=== PATIENT | male | born 1995 | race American Indian/Alaskan Native ===

== ENCOUNTER 2017-11-22 06:52 | Emergency (ER) | payer SELFPAY ==
[2017-11-22 07:57] VITALS: BP 110/76
--- NOTE | 2017-11-22 08:18 | Emergency Department Report ---
Minor Respiratory - HPI Chief Complaint: Sore Throat Stated Complaint: SORE THROAT; H/A Time Seen by Provider: 11/22/17 08:03 Duration: 1 Day Pain Location: Throat, Nose (congestion) Severity: moderate Minor Respiratory: Yes Sore Throat, Yes Able to Tolerate Fluids, Yes Cough, Yes Sick Contacts (girlfriend), Yes Fever, No Rhinorrhea, No Ear Pain, No Hemoptysis , No Chest Pain, No Shortness of Breath Other History: This is a 22-year-old -Citizen Of [place] male presents with a sore throat and fever that started yesterday while at work. Patient has no past medical history. He is a current smoker, half a pack a day. Patient reports girlfriend has been sick for the past 2 days. Patient reports noticing a painful swollen left lower arm and right cervical yesterday while at work. He is having pain with swallowing, mild congestion, and cough. He has not tried taking anything [id number]. Denies nausea or vomiting, shortness of breath, chest pain, and syncope. ED Review of Systems ROS: Stated complaint: SORE THROAT; H/A Other details as noted in HPI Constitutional: chills, fever. denies: diaphoresis, malaise, weakness ENT: throat pain, congestion. denies: ear pain, dental pain, hearing loss, epistaxis Respiratory: cough. denies: shortness of breath, wheezing Cardiovascular: denies: chest pain, palpitations, edema, syncope Gastrointestinal: denies: abdominal pain, nausea, vomiting, diarrhea Musculoskeletal: denies: back pain, joint swelling, arthralgia, myalgia Neurological: denies: headache, weakness, numbness, paresthesias Psychiatric: denies: anxiety, depression ED Past Medical Hx - Past Medical History Previous Medical History?: No - Surgical History Past Surgical History?: No - Social History Smoking Status: Former Smoker Substance Use Type: Alcohol - Medications Home Medications: Home Medications Medication Instructions Recorded Confirmed Last Taken Type Benzonatate 200 mg PO TID PRN #30 capsule 11/22/17 Unknown Rx Fluticasone [Flonase] 1 spray NS QDAY #1 bottle 11/22/17 Unknown Rx guaiFENesin/DEXTROMETHORPHAN 1 each PO BID #14 tab.er.12h 11/22/17 Unknown Rx [Mucinex Dm ER 600-30 mg Tablet] Minor Respiratory Exam - Exam General: Vital signs noted. No distress. Alert and acting appropriately. HEENT: Yes Pharyngeal Erythema, Yes Pharyngeal Exudates (enlarged tonsils with exudate, uvula midline), Yes Moist Mucous Membranes, Yes Rhinorrhea (turbinates mildly congested with clear discharge), No Conjuctival Injection, No Frontal Tenderness, No Maxillary Tenderness Ear: Neither TM Bulge, Neither TM Erythema, Neither EAC Pain, Neither EAC Discharge Neck: Yes Adenopathy (swollen tender cervical lymph nodes on the right, mobile) , Yes Supple Lungs: Yes Good Air Exchange, Yes Cough, No Wheezes, No Ronchi, No Stridor, No Labored Respirations, No Retractions, No Use of Accessory Muscles, No Other Abnormal Lung Sounds Heart: Yes Regular, No Murmur Abdomen: Yes Normal Bowel Sounds, No Tenderness, No Peritoneal Signs Skin: No Rash, No Edema Neurologic: Alert and oriented, no deficits. Musculoskeletal: Unremarkable. ED Course Vital Signs 11/22/17 11/22/17 07:47 07:52 Temperature 99.2 F Pulse Rate 71 65 Respiratory 16 16 Rate Blood Pressure 110/76 110/76 O2 Sat by Pulse 98 98 Oximetry ED Medical Decision Making - Medical Decision Making This is a 22-year-old -Citizen Of [place] male who presents with sore throat and fever for one day. Patient examined by me and stable. No distress noted. Rapid strep obtained and negative. Vitals normal. Given guaifenesin DM 20 mL by mouth once in the ER. Physical findings susceptible nasopharyngitis will start supportive care. Take tylenol or ibuprofen for pain. Start guaifenesin DM, Flonase, and benzonatate. Discussed plan with patient and he agreed with plan to treat outpatient. Discharged home. Return to work tomorrow. Follow up with PCP in 48-72 hours. Critical care attestation.: If time is entered above; I have spent that time in minutes in the direct care of this critically ill patient, excluding procedure time. ED Disposition Clinical Impression: Nasopharyngitis acute, Sore throat (viral) Disposition: TO HOME OR SELFCARE Is pt being admited?: No Does the pt Need Aspirin: No Condition: Stable Instructions: Viral Syndrome (ED), Cold Symptoms (ED), Upper Respiratory Infection (ED) Additional Instructions: Increase fluid intake and rest. Wash hands frequently. Continue taking tylenol or ibuprofen to control fever and lozenges for sore throat F/U with Primary Care Provider. Return to ER if fever, SOB, or difficulty breathing after 48 hours of supportive care. Prescriptions: Benzonatate 200 mg PO TID PRN #30 capsule PRN Reason: Cough Fluticasone [Flonase] 1 spray NS QDAY #1 bottle guaiFENesin/DEXTROMETHORPHAN [Mucinex Dm ER 600-30 mg Tablet] 1 each PO BID #14 tab.er.12h Referrals: [facility] [Outside] - 3-5 Days [facility] [Outside] - 3-5 Days [facility] [Outside] - 3-5 Days Forms: Work/School Release Form(ED) Time of Disposition: 08:54 Print Language: YEMENI
[2017-11-22] MEDS ORDERED: GUAIFENESIN DM SYRUP PO ONE (08:49)
== END 2017-11-22 09:02 | disposition home or self-care (01) ==
LOC: ED 06:52
DX: J00 Acute nasopharyngitis [common cold] (principal); Z87.891 Personal history of nicotine dependence
CPT/HCPCS: 87116; 87430

== ENCOUNTER 2017-11-25 02:30 | Emergency (ER) | payer SELFPAY ==
[2017-11-25 05:24] VITALS: BP 123/76
[2017-11-25] MEDS ORDERED: TORADOL ONE (05:25)
[2017-11-25] MEDS ORDERED: TORADOL IM ONE (05:26)
[2017-11-25] MEDS ORDERED: LIDOCAINE VISCOUS 2% PO ONE (06:19)
[2017-11-25] MEDS ORDERED: BICILLIN L-A IM ONE (06:19)
[2017-11-25] MEDS ORDERED: NORCO 7.5/325 PO ONE (06:19)
--- NOTE | 2017-11-25 06:20 | Emergency Department Report ---
ED ENT HPI - General Chief complaint: Sore Throat Stated complaint: SORETHROAT Time Seen by Provider: 11/25/17 06:18 Source: patient Mode of arrival: Ambulatory Limitations: No Limitations - History of Present Illness Initial comments: 22-year-old -Citizen Of [place] male comes to the emergency room complaining of sore throat since Friday. Patient reports pain only one swallow now having right neck pain and swelling. Patient reports that he was seen here on the and was given Mucinex Flonase and is an 8 which he reports has not helped. Patient reports he has had a fever but did not check it. He reports that he has not been able to eat since Friday. He has no past medical history reports his pain as a 10 out of 10 and has no allergies to medications. MD complaint: sore throat -: days(s) (4) Location: throat Severity scale (0 -10): 10 Quality: stabbing Consistency: constant Improves with: none Worsens with: swallowing Associated Symptoms: fever, pain with swallowing, sore throat. denies: cough, gum swelling - Related Data Previous Rx's Medication Instructions Recorded Last Taken Type Benzonatate 200 mg PO TID PRN #30 capsule 11/22/17 Unknown Rx Fluticasone [Flonase] 1 spray NS QDAY #1 bottle 11/22/17 Unknown Rx guaiFENesin/DEXTROMETHORPHAN 1 each PO BID #14 tab.er.12h 11/22/17 Unknown Rx [Mucinex Dm ER 600-30 mg Tablet] Ibuprofen [Motrin 800 MG tab] 800 mg PO Q8HR PRN #30 tablet 11/25/17 Unknown Rx Allergies Allergy/AdvReac Type Severity Reaction Status Date / Time No Known Allergies Allergy Unverified 11/22/17 08:14 ED Dental HPI - General Chief complaint: Sore Throat Stated complaint: SORETHROAT Time Seen by Provider: 11/25/17 06:18 Source: patient Mode of arrival: Ambulatory Limitations: No Limitations - Related Data Previous Rx's Medication Instructions Recorded Last Taken Type Benzonatate 200 mg PO TID PRN #30 capsule 11/22/17 Unknown Rx Fluticasone [Flonase] 1 spray NS QDAY #1 bottle 11/22/17 Unknown Rx guaiFENesin/DEXTROMETHORPHAN 1 each PO BID #14 tab.er.12h 11/22/17 Unknown Rx [Mucinex Dm ER 600-30 mg Tablet] Ibuprofen [Motrin 800 MG tab] 800 mg PO Q8HR PRN #30 tablet 11/25/17 Unknown Rx Allergies Allergy/AdvReac Type Severity Reaction Status Date / Time No Known Allergies Allergy Unverified 11/22/17 08:14 ED Review of Systems ROS: Stated complaint: SORETHROAT Other details as noted in HPI Constitutional: fever (objective). denies: chills ENT: throat pain Respiratory: denies: cough, shortness of breath, wheezing Cardiovascular: denies: chest pain, palpitations Endocrine: no symptoms reported Gastrointestinal: denies: abdominal pain, nausea, diarrhea Genitourinary: denies: urgency, dysuria Musculoskeletal: denies: back pain, joint swelling, arthralgia Skin: denies: rash, lesions Neurological: denies: headache, weakness, paresthesias Psychiatric: denies: anxiety, depression Hematological/Lymphatic: denies: easy bleeding, easy bruising ED Past Medical Hx - Past Medical History Previous Medical History?: No - Surgical History Past Surgical History?: No - Social History Smoking Status: Never Smoker Substance Use Type: None - Medications Home Medications: Home Medications Medication Instructions Recorded Confirmed Last Taken Type Benzonatate 200 mg PO TID PRN #30 capsule 11/22/17 Unknown Rx Fluticasone [Flonase] 1 spray NS QDAY #1 bottle 11/22/17 Unknown Rx guaiFENesin/DEXTROMETHORPHAN 1 each PO BID #14 tab.er.12h 11/22/17 Unknown Rx [Mucinex Dm ER 600-30 mg Tablet] Ibuprofen [Motrin 800 MG tab] 800 mg PO Q8HR PRN #30 tablet 11/25/17 Unknown Rx ED Physical Exam - General Limitations: No Limitations General appearance: alert, in no apparent distress - Head Head exam: Present: atraumatic, normocephalic - Expanded ENT Exam Expanded Ear exam: Present: normal external inspection Mouth exam: Absent: drooling, trismus, muffled voice Throat exam: Positive: tonsillar erythema, tonsillomegaly, tonsillar exudate - Neck Neck exam: Present: tenderness (right tonsillar), full ROM, lymphadenopathy - Respiratory Respiratory exam: Present: normal lung sounds bilaterally. Absent: respiratory distress - Cardiovascular Cardiovascular Exam: Present: regular rate, normal rhythm. Absent: systolic murmur, diastolic murmur, rubs, gallop ED Course Vital Signs 11/25/17 05:13 Temperature 98 F Pulse Rate 60 Respiratory 16 Rate Blood Pressure 123/76 O2 Sat by Pulse 100 Oximetry ED Medical Decision Making - Medical Decision Making Patient has been evaluated by this provider fast track. Will give patient a viscous lidocaine by mouth. [place] 7.5 mg Penicillin G IM 1.2 million units. Discharge patient on ibuprofen 800 mg. Critical care attestation.: If time is entered above; I have spent that time in minutes in the direct care of this critically ill patient, excluding procedure time. ED Disposition Clinical Impression: Pharyngitis Qualifiers: Pharyngitis/tonsillitis etiology: unspecified etiology Qualified Code(s): J02.9 - Acute pharyngitis, unspecified Disposition: - TO HOME OR SELFCARE Is pt being admited?: No Does the pt Need Aspirin: No Condition: Stable Instructions: Pharyngitis (ED) Additional Instructions: Please take ibuprofen as needed for pain. If symptoms persist or gets worse please follow up with her primary care provider. Prescriptions: Ibuprofen [Motrin 800 MG tab] 800 mg PO Q8HR PRN #30 tablet PRN Reason: Pain Referrals: MICKY YU MD [Primary Care Provider] - 3-5 Days Forms: Work/School Release Form(ED), Accompanied Note
== END 2017-11-25 07:00 | disposition home or self-care (01) ==
LOC: ED 02:30
DX: J02.9 Acute pharyngitis, unspecified (principal)
CPT/HCPCS: 87116; 87430; 96372; 99283; J0561; J1885

== ENCOUNTER 2018-08-03 13:02 | Emergency (ER) | payer SELFPAY ==
--- NOTE | 2018-08-03 13:16 | Emergency Department Report ---
Blank Doc - Documentation Documentation: This is a 22-year-old male that presents with left ankle pain and swelling. S tated injured this while playing basketball. Denies any other injuries. This initial assessment diagnostic orders/clinical plan/treatment(s) is/are subject to change based on patient's health status, clinical progression and re- assessment by fellow clinical providers in the ED. Further treatment and workup at subsequent clinical providers discretion. Patient/guardians urged not to elope from ED s their condition may be serious if not clinically assessed and managed. Initial orders include: 1-Patient sent to [facility] for further evaluation and treatment 2- xray
[2018-08-03 13:18] VITALS: BP 122/75
--- NOTE | 2018-08-03 14:32 | XRay Report ---
LEFT ANKLE, 3 views: History: left ankle pain. Bone mineralization is normal. No acute osseous abnormality or joint pathology is identified. There is moderate lateral soft tissue swelling. IMPRESSION: Soft tissue swelling. No acute osseous findings.
[2018-08-03] MEDS ORDERED: ZOFRAN ODT PO ONE (16:30)
[2018-08-03] MEDS ORDERED: TYLENOL #3 PO ONE (16:31)
--- NOTE | 2018-08-03 16:47 | Emergency Department Report ---
ED General Adult HPI - General Chief complaint: Extremity Injury, Lower Stated complaint: L FOOT INJURY Time Seen by Provider: 08/03/18 13:12 Source: patient Mode of arrival: Wheelchair Limitations: Physical Limitation - History of Present Illness Initial comments: She presents to the emergency department with a chief complaint left ankle pain. Patient states was from basketball yesterday and rolled his left ankle. Patient states is not able to apply weight to that ankle. -: Sudden Location: lower extremity Severity scale (0 -10): 3 Quality: aching Consistency: constant Improves with: rest Worsens with: movement Associated Symptoms: denies other symptoms Treatments Prior to Arrival: none - Related Data Previous Rx's Medication Instructions Recorded Last Taken Type Fluticasone [Flonase] 1 spray NS QDAY #1 bottle 11/22/17 Unknown Rx RX: Benzonatate 200 mg PO TID PRN #30 capsule 11/22/17 Unknown Rx RX: guaiFENesin/DEXTROMETHORPHAN 1 each PO BID #14 tab.er.12h 11/22/17 Unknown Rx [Mucinex Dm ER 600-30 mg Tablet] RX: Ibuprofen [Motrin 800 MG tab] 800 mg PO Q8HR PRN #30 tablet 11/25/17 Unknown Rx Ibuprofen [Motrin] 800 mg PO Q8HR PRN #30 tablet 08/03/18 Unknown Rx Allergies Allergy/AdvReac Type Severity Reaction Status Date / Time No Known Allergies Allergy Unverified 11/22/17 08:14 ED Review of Systems ROS: Stated complaint: L FOOT INJURY Other details as noted in HPI Comment: All other systems reviewed and negative Constitutional: denies: chills, fever Eyes: denies: eye pain, eye discharge, vision change ENT: denies: ear pain, throat pain Respiratory: denies: cough, shortness of breath, wheezing Cardiovascular: denies: chest pain, palpitations Endocrine: no symptoms reported Gastrointestinal: denies: abdominal pain, nausea, diarrhea Genitourinary: denies: urgency, dysuria Musculoskeletal: denies: back pain, joint swelling, arthralgia Skin: denies: rash, lesions Neurological: denies: headache, weakness, paresthesias Psychiatric: denies: anxiety, depression Hematological/Lymphatic: denies: easy bleeding, easy bruising ED Past Medical Hx - Past Medical History Previous Medical History?: No - Surgical History Past Surgical History?: No - Social History Smoking Status: Never Smoker Substance Use Type: Alcohol - Medications Home Medications: Home Medications Medication Instructions Recorded Confirmed Last Taken Type Fluticasone [Flonase] 1 spray NS QDAY #1 bottle 11/22/17 Unknown Rx RX: Benzonatate 200 mg PO TID PRN #30 capsule 11/22/17 Unknown Rx RX: guaiFENesin/DEXTROMETHORPHAN 1 each PO BID #14 tab.er.12h 11/22/17 Unknown Rx [Mucinex Dm ER 600-30 mg Tablet] RX: Ibuprofen [Motrin 800 MG tab] 800 mg PO Q8HR PRN #30 tablet 11/25/17 Unknown Rx Ibuprofen [Motrin] 800 mg PO Q8HR PRN #30 tablet 08/03/18 Unknown Rx ED Physical Exam - General Limitations: Physical Limitation General appearance: alert, in no apparent distress - Head Head exam: Present: atraumatic, normocephalic - Eye Eye exam: Present: normal appearance, PERRL, EOMI - ENT ENT exam: Present: mucous membranes moist - Neck Neck exam: Present: normal inspection - Respiratory Respiratory exam: Absent: normal lung sounds bilaterally - Rectal Rectal exam: Present: deferred - Extremities Exam Extremities exam: Present: other (tender to palpation along the medial malleolus) - Back Exam Back exam: Present: normal inspection - Neurological Exam Neurological exam: Present: alert, oriented X3, CN II-XII intact. Absent: motor sensory deficit - Psychiatric Psychiatric exam: Present: normal affect, normal mood - Skin Skin exam: Present: warm, dry, intact, normal color. Absent: rash ED Course Vital Signs 08/03/18 13:17 Temperature 98.3 F Pulse Rate 81 Respiratory 16 Rate Blood Pressure 122/75 O2 Sat by Pulse 98 Oximetry ED Medical Decision Making - Radiology Data Radiology results: report reviewed - Medical Decision Making Discussed results with patient Critical care attestation.: If time is entered above; I have spent that time in minutes in the direct care of this critically ill patient, excluding procedure time. ED Disposition Clinical Impression: Ankle sprain Disposition: DC-01 TO HOME OR SELFCARE Is pt being admited?: No Does the pt Need Aspirin: No Condition: Stable Instructions: Ankle Sprain (ED) Additional Instructions: return if worse Prescriptions: Ibuprofen [Motrin] 800 mg PO Q8HR PRN #30 tablet PRN Reason: Pain Referrals: JANET PEPPER MD [Primary Care Provider] - 3-5 Days [facility] [Provider Group] - 3-5 Days [facility] [Provider Group] - 3-5 Days [facility] [Outside] - 3-5 Days JAM TOMLIN MD [Staff Physician] - 3-5 Days Forms: Work/School Release Form(ED) Time of Disposition: 16:46
== END 2018-08-03 17:02 | disposition home or self-care (01) ==
LOC: ED 13:02
DX: S93.402A Sprain of unspecified ligament of left ankle, initial encounter (principal); W21.05XA Struck by basketball, initial encounter; Y93.67 Activity, basketball; Y92.39 Other specified sports and athletic area as the place of occurrence of the external cause; Y99.8 Other external cause status
CPT/HCPCS: 99284; Q0162